=== PATIENT | male | born 1980 | race Caucasian/White ===

== ENCOUNTER 2020-09-18 16:39 | Emergency (ER) | payer BC, OTHER ==
[2020-09-18] MEDS ORDERED: cephALEXin 250 MG CAPSULE PO STA (17:49)
--- NOTE | 2020-09-18 17:52 | ED Physician Documentation ---
History of Present Illness - Stated complaint Stated Complaint: PAINFUL TATTOO - Chief complaint Chief Complaint: General - History obtained from History obtained from: Patient (3 days ago got a new tattoo on the left hand and he has mild surrounding pain and redness there. No fevers.) Review of Systems Constitutional: reports: Reviewed and negative Eyes: reports: Reviewed and negative Ears: reports: Reviewed and negative Nose: reports: Reviewed and negative PD PAST MEDICAL HISTORY - Present Medications Home Medications: Ambulatory Orders Medication Instructions Recorded Confirmed cephALEXin [Keflex] 500 mg PO Q6H #28 cap 09/18/20 - Allergies Allergies/Adverse Reactions: Allergies Allergy/AdvReac Type Severity Reaction Status Date / Time No Known Drug Allergies Allergy Verified 09/18/20 17:09 PD ED PE NORMAL - Vitals Vital signs reviewed: Yes - General General: Alert and oriented X 3, No acute distress - Extremities Extremities: Other (Tattoo in the first dorsal webspace with very mild surrounding cellulitis, only a couple of centimeters. No abscess.) - Neuro Neuro: Alert and oriented X 3, Normal speech Results - Vitals Vitals: Vital Signs - 24 hr 09/18/20 17:06 Temperature 36.8 C Heart Rate 80 Respiratory 15 Rate Blood Pressure 128/74 O2 Saturation 99 Oxygen O2 Source Room air Departure - Departure Disposition: 01 Home, Self Care Clinical Impression: Cellulitis of left hand Condition: Good Record reviewed to determine appropriate education?: Yes Instructions: Cellulitis Dc Prescriptions: cephALEXin [Keflex] 500 mg PO Q6H #28 cap Comments: Return for new or worsening symptoms. Recheck with your doctor in 3 to 5 days.
[2020-09-18 18:08] VITALS: BP 150/89
== END 2020-09-18 18:10 | disposition home or self-care (01) ==
LOC: ED 16:39
DX: L03.114 Cellulitis of left upper limb (principal)
CPT/HCPCS: 99282; 99283; A9270

== ENCOUNTER 2021-03-14 22:21 | Emergency (ER) | payer MEDICAID ==
--- NOTE | 2021-03-14 22:43 | ED Physician Documentation ---
PD HPI HEENT - Stated complaint Stated Complaint: FOREIGN OBJ IN THROAT, SHIVERS, WEAKNESS - Chief complaint Chief Complaint: General - History obtained from History obtained from: Patient - History of Present Illness Timing - onset: How many hours ago (1), Today Timing - duration: Hours (1) Timing - details: Abrupt onset, Still present Location: Throat (he states he had left upper front tooth abruptly break off and went down his throat. He felt onset of a sharp pain substernally that has not improved. No vomiting. He got very anxious about it on way here.), Tooth Worsens: Swalllowing (he tried some sips of water that did go down but caused some increased substernal pain.) Associated symptoms: No: Fever, Congestion, Facial swelling, Cough Similar symptoms before: Has not had sx before Recently seen: Not recently seen Review of Systems Constitutional: reports: Chills (subjective this evening). denies: Fever, Myalgias Nose: denies: Rhinorrhea / runny nose, Congestion Throat: denies: Sore throat Cardiac: reports: Chest pain / pressure. denies: Palpitations, Pedal edema, Calf pain Respiratory: denies: Dyspnea, Cough, Wheezing GI: reports: Nausea. denies: Abdominal Pain, Vomiting, Diarrhea Skin: denies: Rash, Lesions Neurologic: reports: Generalized weakness, Other (feeling of tremoring in right arm/hand.). denies: Difficulty speaking, Near syncope PD PAST MEDICAL HISTORY - Past Medical History Cardiovascular: None Respiratory: None Neuro: None Endocrine/Autoimmune: None - Past Surgical History Past Surgical History: No - Present Medications Home Medications: Ambulatory Orders Medication Instructions Recorded Confirmed No Known Home Medications 03/15/21 03/15/21 - Allergies Allergies/Adverse Reactions: Allergies Allergy/AdvReac Type Severity Reaction Status Date / Time No Known Drug Allergies Allergy Verified 03/14/21 22:36 - Living Situation Living Situation: reports: Alone Living Arrangement: reports: At home - Social History Does the pt smoke?: Yes Smoking Status: Current every day smoker Does the pt drink ETOH?: Yes Does the pt have substance abuse?: Yes - Immunizations Immunizations are current?: Yes PD ED PE NORMAL - Vitals Vital signs reviewed: Yes - General General: Alert and oriented X 3, Well developed/nourished, Other (appears very anxious. ) - HEENT HEENT: No: Dentition benign (left upper frontal tooth with broken appearance with front 2/3 of the tooth missing. No signs of infection in gum line. No drainage. ) - Neck Neck: Supple, no meningeal sign, No adenopathy - Cardiac Cardiac: RRR, No murmur - Respiratory Respiratory: Clear bilaterally, Other (no chestwall tenderness. ) - Abdomen Abdomen: Soft, Non tender - Derm Derm: Normal color, Warm and dry, No rash - Extremities Extremities: Normal ROM s pain, No edema, No calf tenderness / cord - Neuro Neuro: Alert and oriented X 3, No motor deficit, Normal speech Results - Vitals Vitals: Vital Signs - 24 hr 03/14/21 03/15/21 22:34 00:16 Temperature 36.7 C 36.8 C Heart Rate 84 76 Respiratory 20 15 Rate Blood Pressure 147/101 H 139/88 H O2 Saturation 97 99 Oxygen O2 Source Room air - Labs Labs: Laboratory Tests 03/14/21 03/14/21 23:00 23:00 WBC 9.1 RBC 4.84 Hgb 15.6 Hct 45.8 MCV 94.6 H MCH 32.2 H MCHC 34.1 RDW 12.5 Plt Count 159 MPV 11.5 H Neut # (Auto) 5.6 Lymph # (Auto) 2.0 Young # (Auto) 0.8 Eos # (Auto) 0.7 Baso # (Auto) 0.1 Absolute Nucleated RBC 0.00 Nucleated RBC % 0.0 Sodium 135 Potassium 3.9 Chloride 99 L Carbon Dioxide 25 Anion Gap 11.0 BUN 12 Creatinine 0.8 Estimated GFR (MDRD) 107 Glucose 105 H Calcium 9.2 Total Bilirubin 0.6 AST 31 ALT 48 Alkaline Phosphatase 38 L Total Protein 7.3 Albumin 4.2 Globulin 3.1 Albumin/Globulin Ratio 1.4 Lipase 34 - Rads (name of study) chest CT Radiology: Prelim report reviewed (tooth in stomach. No acute chest process. ), See rad report PD MEDICAL DECISION MAKING - ED course Complexity details: reviewed results, re-evaluated patient (feeling improved with some meds and GI cocktail. Mild discomfort now. ), considered differential (Given the abruptness of the pain after swelling her tooth, concern would be for mediastinal or esophageal puncture, impacted FB, PTX, given the degree of pain. Can assess with CT scan.), d/w patient Departure - Departure Disposition: 01 Home, Self Care Clinical Impression: Swallowed foreign body Qualifiers: Encounter type: initial encounter Qualified Code(s): T18.9XXA - Foreign body of alimentary tract, part unspecified, initial encounter Esophageal abrasion Qualifiers: Encounter type: initial encounter Qualified Code(s): S27.818A - Other injury of esophagus (thoracic part), initial encounter Chest pain Qualifiers: Chest pain type: precordial pain Qualified Code(s): R07.2 - Precordial pain Condition: Stable Record reviewed to determine appropriate education?: Yes Instructions: ED Foreign Body Swallowed Adult Comments: The CT scan shows the tooth to be in the stomach. There is no signs of perforation or injury of the esophagus demonstrated on the CT scan. Presume you have an abrasion of the wall of it with some irritation. This should improve with time as well as some antacids and Tylenol. I would anticipate improvement over the next day or 2. Recheck if not better in that timeframe. Return if worsening. Discharge Date/Time: 03/15/21 00:35
[2021-03-14] MEDS ORDERED: MAG HYDROX/AL HYDROX/SIMETH 30 ML UDC PO STA (22:55)
[2021-03-14] MEDS ORDERED: LIDOCAINE VISCOUS 2% 15 ML UDC MM STA (22:55)
[2021-03-14] MEDS ORDERED: KETOROLAC 30 MG/ML VIAL IVP STA (22:55)
[2021-03-14 23:09] LABS: BASOPHILS # (AUTO) 0.1 10^3/uL (0.0-0.1); BASOPHILS % (AUTO) 0.9 %; EOSINOPHILS # (AUTO) 0.7 10^3/uL (0.0-0.7); EOSINOPHILS % (AUTO) 7.2 %; HCT - HEMATOCRIT 45.8 % (42.0-52.0); HGB - HEMOGLOBIN 15.6 g/dL (14.0-18.0); LYMPHOCYTES % (AUTO) 21.7 %; MEAN CORPUSCULAR HEMOGLOBIN 32.2 pg (27.0-31.0); MEAN CORPUSCULAR HGB CONC 34.1 g/dL (32.0-36.0); MEAN CORPUSCULAR VOLUME 94.6 fL (80.0-94.0); MEAN PLATELET VOLUME 11.5 fL (7.4-11.4); MONOCYTES # (AUTO) 0.8 10^3/uL (0.0-1.0); MONOCYTES % (AUTO) 8.5 %; NEUTROPHILS # (AUTO) 5.6 10^3/uL (1.5-6.6); NEUTROPHILS % (AUTO) 61.5 %; PLT - PLATELET COUNT 159 10^3/uL (130-450); RED BLOOD COUNT 4.84 10^6/uL (4.70-6.10); RED CELL DISTRIBUTION WIDTH 12.5 % (12.0-15.0); WHITE BLOOD COUNT 9.1 x10^3/uL (4.8-10.8)
[2021-03-14] MEDS ORDERED: IOPAMIDOL-300 100 ML VIAL ONE (23:18)
[2021-03-14 23:22] LABS: ALBUMIN 4.2 g/dL (3.2-5.5); ALBUMIN/GLOBULIN RATIO 1.4 (1.0-2.2); BILIRUBIN,TOTAL 0.6 mg/dL (0.2-1.0); CALCIUM 9.2 mg/dL (8.5-10.3); CREATININE 0.8 mg/dL (0.6-1.2); POTASSIUM 3.9 mmol/L (3.5-5.0); TOTAL PROTEIN 7.3 g/dL (6.7-8.2)
[2021-03-14] MEDS ORDERED: IOPAMIDOL-300 100 ML VIAL IVP ONE (23:47)
--- NOTE | 2021-03-14 23:57 | CT Report ---
PROCEDURE: CHEST W INDICATIONS: swallowed broken tooth; lower esophageal pain CONTRAST: IV CONTRAST: Isovue 300 ml: 100 PO CONTRAST: *NO PO CONTRAST TECHNIQUE: After the administration of intravenous contrast, 1 mm axial images were acquired from the pulmonary apices through the posterior costophrenic angles. Axial 5 mm soft tissue kernel reconstructions were performed as well as 8 mm axial MIP and coronal and sagittal 5 mm reformations. For radiation dose reduction, the following was used: automated exposure control, adjustment of mA and/or kV according to patient size. COMPARISON: None. FINDINGS: Image quality: Excellent. Lungs and pleura: No acute air space opacities. Right lower lobe subpleural pulmonary nodule measur ing 0.4 cm, (4/31). Left upper lobe pulmonary nodule measuring 0.3 cm, (4/106). Left lower lobe pulmo nary nodule measuring 0.3 cm, (4/303). No pleural effusions or pneumothorax. Central and peripheral airways are patent and normal in caliber. Mediastinum: Heart size is normal. No pericardial effusion. No mediastinal or hilar adenopathy by size criteria. Thoracic aorta and central pulmonary arteries are normal in size. Esophagus is yuri l in caliber. No hiatal hernia. Bones and chest wall: No suspicious bony lesions. No vertebral body compression fractures. No axil paxton or supraclavicular adenopathy by size criteria. The thyroid is normal in size and there are no incidental findings.. Abdomen: Visualized upper abdominal solid organs appear normal. Upper abdominal bowel loops are nor mal in caliber. Metallic foreign body in the stomach. This likely represents the ingested tooth fill ing. IMPRESSION: 1. Swallowed tooth is in the stomach. 2. No acute airspace opacity. 3. A few small pulmonary nodules measuring 0.4 cm or less. Reviewed by: Deric Beach MD on 03/14/2021 11:56 PM PST Approved by: Deric Beach MD on 03/14/2021 11:56 PM PST Station ID: [id number]
[2021-03-15] MEDS ORDERED: LORazepam 2 MG/ML VIAL IVP STA (00:15)
[2021-03-15 00:18] VITALS: BP 139/88
== END 2021-03-15 00:35 | disposition home or self-care (01) ==
LOC: ED 22:21
DX: T18.9XXA Foreign body of alimentary tract, part unspecified, initial encounter (principal); Y99.9 Unspecified external cause status; F17.200 Nicotine dependence, unspecified, uncomplicated
CPT/HCPCS: 36415; 71260; 80053; 83690; 85025; 96374; 96375; 99282; 99284; A9270; J2060; Q9967

== ENCOUNTER 2023-09-03 19:43 | Emergency (ER) | payer MEDICAID ==
[2023-09-03 20:03] LABS: BASOPHILS # (AUTO) 0.1 10^3/uL (0.0-0.1); BASOPHILS % (AUTO) 1.1 %; EOSINOPHILS # (AUTO) 0.6 10^3/uL (0.0-0.7); EOSINOPHILS % (AUTO) 7.1 %; HCT - HEMATOCRIT 50.1 % (42.0-52.0); HGB - HEMOGLOBIN 16.6 g/dL (14.0-18.0); LYMPHOCYTES # (AUTO) 1.9 10^3/uL (1.5-3.5); LYMPHOCYTES % (AUTO) 20.8 %; MEAN CORPUSCULAR HEMOGLOBIN 31.6 pg (27.0-31.0); MEAN CORPUSCULAR HGB CONC 33.1 g/dL (32.0-36.0); MEAN CORPUSCULAR VOLUME 95.4 fL (80.0-94.0); MEAN PLATELET VOLUME 11.1 fL (7.4-11.4); MONOCYTES # (AUTO) 0.5 10^3/uL (0.0-1.0); NEUTROPHILS # (AUTO) 5.9 10^3/uL (1.5-6.6); NEUTROPHILS % (AUTO) 64.8 %; PLT - PLATELET COUNT 187 10^3/uL (130-450); RED BLOOD COUNT 5.25 10^6/uL (4.70-6.10); RED CELL DISTRIBUTION WIDTH 12.2 % (12.0-15.0); WHITE BLOOD COUNT 9.1 x10^3/uL (4.8-10.8)
[2023-09-03 20:23] LABS: ALBUMIN 4.5 g/dL (3.2-5.5); ALBUMIN/GLOBULIN RATIO 2.8 (1.0-2.2); BILIRUBIN,TOTAL 0.4 mg/dL (0.2-1.0); CALCIUM 9.4 mg/dL (8.5-10.3); CREATININE 0.9 mg/dL (0.6-1.3); TOTAL PROTEIN 6.1 g/dL (6.4-8.9)
--- NOTE | 2023-09-03 20:56 | XRAY Report ---
PROCEDURE: Chest 1V INDICATIONS: Chest pain TECHNIQUE: One view of the chest was acquired. COMPARISON: CT chest 03/14/2021. FINDINGS: Surgical changes and devices: None. Lungs and pleura: No pleural effusions or pneumothorax. Lungs are clear. Mediastinum: Mediastinal contours appear normal. Heart size is normal. Bones and chest wall: No suspicious bony lesions. Overlying soft tissues appear unremarkable. IMPRESSION: No acute cardiopulmonary process. Reviewed by: Helene Bojorquez MD, PhD on 09/03/2023 8:54 PM PDT Approved by: Helene Bojorquez MD, PhD on 09/03/2023 8:54 PM PDT Station ID: [id number]
--- NOTE | 2023-09-03 21:32 | ED Physician Documentation ---
History of Present Illness - Stated complaint Stated Complaint: LT ARM PX/HIGH HR - Chief complaint Chief Complaint: Cardiac - History obtained from History obtained from: Patient - Additonal information Additional information: HPI from patient. Patient c/o "extremely high pulse" (per patient), high blood pressure, fatigue. Upon further elaboration, he says he did not take his blood pressure but feels it was high due to generalized joint aches which he believes is due to high blood pressure. Similarly, he is not sure of how high his pulse was; he says he measured "three beats per second" (per patient) at one point this evening. Does not offer c/o chest pain, but on ROS says he was having mild, vague anterior chest discomfort lasting less than an hour, now resolved. Denies dyspnea. PD PAST MEDICAL HISTORY - Past Medical History Past Medical History: Yes Cardiovascular: Hypertension Respiratory: None Neuro: None Endocrine/Autoimmune: None GI: None : None HEENT: None Psych: None Musculoskeletal: None Derm: None - Past Surgical History Past Surgical History: No General: Other Ortho: Other HEENT: Tonsil/Adenoidectomy - Present Medications Home Medications: Ambulatory Orders Medication Instructions Recorded Confirmed No Known Home Medications 03/15/21 09/03/23 - Allergies Allergies/Adverse Reactions: Allergies Allergy/AdvReac Type Severity Reaction Status Date / Time No Known Drug Allergies Allergy Verified 09/03/23 19:50 - Social History Does the pt smoke?: Yes Smoking Status: Current every day smoker Does the pt drink ETOH?: Yes Does the pt have substance abuse?: Yes - Immunizations Immunizations are current?: Yes - POLST Patient has POLST: No PD ED PE NORMAL - Vitals Vital signs reviewed: Yes - General General: Alert and oriented X 3, No acute distress, Well developed/nourished - Neck Neck: Supple, no meningeal sign - Cardiac Cardiac: RRR, No murmur, No gallop, No rub - Respiratory Respiratory: No respiratory distress, Clear bilaterally - Abdomen Abdomen: Soft, Non tender - Extremities Extremities: No edema Results - Vitals Vitals: Oxygen O2 Source Room air - EKG (time done) No standard instances EKG releavant findings:: EKG personally interpreted by author of this note. Relevant findings are: Rate: Rate (enter#) (74) Rhythm: NSR [place]: Normal Intervals: Normal [place] QRS: Normal Ischemia: Normal ST segments - Labs Labs: Laboratory Tests 09/03/23 09/03/23 19:59 19:59 WBC 9.1 RBC 5.25 Hgb 16.6 Hct 50.1 MCV 95.4 H MCH 31.6 H MCHC 33.1 RDW 12.2 Plt Count 187 MPV 11.1 Neut # (Auto) 5.9 Lymph # (Auto) 1.9 [place] # (Auto) 0.5 Eos # (Auto) 0.6 Baso # (Auto) 0.1 Absolute Nucleated RBC 0.00 Nucleated RBC % 0.0 Sodium 137 Potassium 4.0 Chloride 101 Carbon Dioxide 29 Anion Gap 7.0 BUN 5 L Creatinine 0.9 Estimated GFR (MDRD) 93 Glucose 115 H Calcium 9.4 Total Bilirubin 0.4 AST 19 ALT 33 Alkaline Phosphatase 59 Troponin I High Sens 5.0 Total Protein 6.1 L Albumin 4.5 Globulin 1.6 L Albumin/Globulin Ratio 2.8 H Lipase 22 - Rads (name of study) chest xray Relevant Findings:: Prelim report reviewed, See rad report PD Medical Decision Making - ED course Complexity details: reviewed results, re-evaluated patient, considered differential, d/w patient ED course: NSR on EKG with normal pulse and upper-normal/mildly elevated BP during ED stay. No concerning nor diagnostic findings on EKG, CXR, blood work including normal hs-cTn. Etiology of symptoms is not apparent at this time. Results d/w patient, return precautions reviewed, advised to seek f/u with PCP for reevaluation. Departure - Departure Disposition: 01 Home, Self Care Clinical Impression: Chest pain Condition: Good Instructions: ED Chest Pain Atypical Unkn Cause Comments: There were no concerning nor diagnostic findings on tonight's test including the EKG, chest x-ray, and the blood tests. The cause of your symptoms is not apparent at this time. As we discussed, it is very important that you establish yourself with an outpatient primary care provider not only for reevaluation of your symptoms that you had tonight, but also for regular checkups to determine if you do indeed have chronic high blood pressure. Discharge Date/Time: 09/03/23 21:51
[2023-09-03 22:00] VITALS: BP 138/88; O2SAT 98
== END 2023-09-03 21:51 | disposition home or self-care (01) ==
LOC: ED 19:43
DX: R07.9 Chest pain, unspecified (principal); I10 Essential (primary) hypertension; F17.200 Nicotine dependence, unspecified, uncomplicated
CPT/HCPCS: 36415; 80053; 83690; 84484; 85025; 93005; 99283; 99284